=== PATIENT | male | born 1955 | race African-American/Black ===

== ENCOUNTER 2019-03-20 15:26 | Observation (INO) ==
[2019-03-20] MEDS ORDERED: ONDANSETRON 4 MG/2 ML VIAL ONE (16:10)
[2019-03-20] MEDS ORDERED: ONDANSETRON 4 MG/2 ML VIAL IV STA (16:37)
[2019-03-20] MEDS ORDERED: SODIUM CHLORIDE 0.9% 1,000 ML IV STA (16:37)
[2019-03-20] MEDS ORDERED: ASPIRIN 325 MG TABLET PO STA (16:37)
[2019-03-20 17:04] LABS: Basophils # 0.1 10*3/uL (0.0-0.2); Basophils % 0.5 % (0.0-0.8); Eosinophils % 0.1 % (0.00-10.9); Hematocrit 47.8 VOL% (42.0-52.0); Hemoglobin 15.5 GM/DL (14.0-18.0); Immature Granulocytes % 0.6 %; Immature Granulocytes Absolute 0.08 #; Lymphocytes # 1.6 10*3/uL (1.4-4.0); Lymphocytes % 12.3 % (21.2-54.2); Mean Corpuscular HGB Conc 32.4 GM/DL (32-36); Mean Corpuscular Volume 89.8 FL (87-102); Mean Platelet Volume 12.1 FL (9.6-12.0); Monocytes % 2.7 % (1.7-12.7); Neutrophils % 83.8 % (38.7-73.9); Platelet Count 274 T/CUMM (130-400); Red Blood Count 5.32 MC/CUMM (3.8-5.5); Red Cell Distribution Width 12.6 % (9.3-17.3); White Blood Count 12.9 T/CUMM (4-12)
[2019-03-20 17:13] LABS: INR 1.1; PT Patient Result 11.7 SECS (9.6-12.2)
[2019-03-20 17:51] LABS: Alanine Aminotransferase 64 U/L (16-61); Albumin 5.8 G/DL (3.4-5.0); Alkaline Phosphatase 105 U/L (45-117); Aspartate Amino Transferase 44 U/L (0-37); Blood Urea Nitrogen 27 MG/DL (7-18); CKMB % 1.9 %; Calcium 12.3 MG/DL (8.5-10.1); Estimated Glom Filtration Rate 27 ML/MIN; Glucose 111 MG/DL (74-106); Osmolality,Calculated 286.3 MOS/KG (273-304); Total Protein 10.5 G/DL (6.4-8.3); Troponin I < 0.015 NG/ML (0.00-0.045)
[2019-03-20 18:42] LABS: Apearance,Urine Cloudy (Clear); Glucose,Urine (UA) Negative (Negative); Ketones,Urine 25 mg/dL (Negative); Nitrite,Urine Negative (Negative); Protein,Urine 30 MG/DL; Urine Color Amber (Yellow)
[2019-03-20 18:43] LABS: Bilirubin,Urine Negative (Negative); Blood, Urine Negative (Negative); RBC,Urine Occasional /HPF (0-4); Renal Epithelial Cells,Urine None Seen /HPF (<1); Squamous Epithelial Cell,Urine 2+ /HPF (0-10); Transitional Epi Cells,Urine None Seen /HPF (<1); Urine Urobilinogen 0.2 EU/DL (0.2-1.0); WBC,Urine Occasional /HPF (0-6)
[2019-03-20 18:44] LABS: Mucus,Urine 2+ /LPF (Occasional)
[2019-03-20] MEDS ORDERED: ONDANSETRON 4 MG/2 ML VIAL IV PRN (19:00)
[2019-03-20] MEDS ORDERED: ACETAMINOPHEN 325 MG TABLET PO PRN (19:00)
[2019-03-20] MEDS ORDERED: hydrALAZINE 20 MG/1 ML VIAL IV PRN (19:04)
[2019-03-20 19:36] LABS: Barbiturates Screen,Urine Negative (Negative); Benzodiazepines Screen,Urine Negative (Negative); Cannabinoid Screen,Urine Negative (Negative); Opiate Screen,Urine Negative (Negative); Phencyclidine Screen,Urine Negative (Negative)
[2019-03-20] MEDS ORDERED: INFLUENZA VIRUS VACCINE 0.5 ML SYRINGE IM ONE (20:21)
[2019-03-20] MEDS ORDERED: ENOXAPARIN 30 MG/0.3 ML SYRINGE SUBCUT SCH (21:00)
[2019-03-20] MEDS: DEXTROSE 5% NACL 0.45% 1,000 ML IV SCH (21:01)
[2019-03-21 05:45] LABS: Calcium 8.7 MG/DL (8.5-10.1); Risk Ratio 2.42; VLDL CHOLESTEROL 10.2 MG/DL
[2019-03-21] MEDS: DEXTROSE 5% NACL 0.45% 1,000 ML IV SCH ×2 (06:40→11:49)
[2019-03-21 06:52] LABS: Basophils % 0.3 % (0.0-0.8); Eosinophils # 0.1 10*3/uL (0.0-0.87); Eosinophils % 1.6 % (0.00-10.9); Hematocrit 35.5 VOL% (42.0-52.0); Immature Granulocytes % 0.3 %; Immature Granulocytes Absolute 0.02 #; Lymphocytes # 2.1 10*3/uL (1.4-4.0); Lymphocytes % 28.1 % (21.2-54.2); Mean Corpuscular HGB Conc 32.4 GM/DL (32-36); Mean Corpuscular Volume 89.4 FL (87-102); Mean Platelet Volume 11.7 FL (9.6-12.0); Monocytes % 8.1 % (1.7-12.7); Neutrophils % 61.6 % (38.7-73.9); Red Cell Distribution Width 12.7 % (9.3-17.3)
[2019-03-21 06:53] LABS: Hemoglobin 11.5 GM/DL (14.0-18.0); Red Blood Count 3.97 MC/CUMM (3.8-5.5); White Blood Count 7.3 T/CUMM (4-12)
[2019-03-21 06:54] LABS: Platelet Count 180 T/CUMM (130-400)
[2019-03-21] MEDS ORDERED: LEVOTHYROXINE 25 MCG TABLET PO SCH (07:00)
[2019-03-21 08:05] VITALS: BP 124/81
[2019-03-21] MEDS ORDERED: SODIUM CHLORIDE 0.9% 2,000 ML IV ONE (08:41)
[2019-03-21] MEDS ORDERED: ASPIRIN EC 81 MG TABLET PO SCH (09:00)
[2019-03-21] MEDS ORDERED: PANTOPRAZOLE 40 MG TABLET PO SCH (09:00)
[2019-03-21] MEDS ORDERED: ENOXAPARIN 40 MG/0.4 ML SYRINGE SUBCUT SCH (21:00)
== END 2019-03-21 12:09 | disposition home or self-care (01) ==
LOC: N.EDINP 15:26 → N.ED 15:26 → N.2E 19:33
PROVIDERS: ADMIT Emergency Medicine; ATTEND Emergency Medicine

== ENCOUNTER 2020-10-16 05:33 | Observation (INO) ==
[2020-10-16 06:15] LABS: Basophils # 0.1 10*3/uL (0.0-0.2); Basophils % 0.5 % (0.0-0.8); Eosinophils # 0.2 10*3/uL (0.0-0.87); Eosinophils % 1.6 % (0.00-10.9); Hematocrit 38.3 VOL% (42.0-52.0); Hemoglobin 12.3 GM/DL (14.0-18.0); Immature Granulocytes % 0.4 %; Immature Granulocytes Absolute 0.04 #; Lymphocytes # 1.9 10*3/uL (1.4-4.0); Lymphocytes % 17.6 % (21.2-54.2); Mean Corpuscular HGB Conc 32.1 GM/DL (32-36); Mean Corpuscular Volume 87.2 FL (87-102); Mean Platelet Volume 10.8 FL (9.6-12.0); Monocytes % 5.5 % (1.7-12.7); Neutrophils % 74.4 % (38.7-73.9); Platelet Count 210 T/CUMM (130-400); Red Blood Count 4.39 MC/CUMM (3.8-5.5); Red Cell Distribution Width 13.2 % (9.3-17.3); White Blood Count 10.6 T/CUMM (4-12)
[2020-10-16] MEDS ORDERED: PANTOPRAZOLE 40 MG VIAL IV STA (06:15)
[2020-10-16] MEDS ORDERED: HYDROmorphone 2 MG/1 ML VIAL IV STA ×2 (06:15→13:34)
[2020-10-16] MEDS ORDERED: ONDANSETRON 4 MG/2 ML VIAL IV STA ×2 (06:15→14:26)
[2020-10-16] MEDS ORDERED: SODIUM CHLORIDE 0.9% 1,000 ML IV STA (06:15)
[2020-10-16 06:36] LABS: Bilirubin,Total 0.6 MG/DL (0.2-1.0); Calcium 8.9 MG/DL (8.5-10.1); Osmolality,Calculated 283.4 MOS/KG (273-304); Potassium 3.6 MMOL/L (3.5-5.1); Total Protein 7.5 G/DL (6.4-8.2)
[2020-10-16 08:04] LABS: Mucus,Urine Occasional /LPF (Occasional); RBC,Urine <1 /HPF (0-4); WBC,Urine 4 /HPF (0-6)
[2020-10-16 08:10] LABS: Bilirubin,Urine Negative (Negative); Blood, Urine Negative (Negative); Glucose,Urine (UA) Negative (Negative); Ketones,Urine Negative (Negative); Nitrite,Urine Negative (Negative); Protein,Urine Negative; Urine Appearance CLEAR (Clear); Urine Color Yellow (Yellow); Urine Urobilinogen < 2.0 EU/DL (0.2-1.0)
[2020-10-16 09:01] LABS: Barbiturates Screen,Urine Negative (Negative); Benzodiazepines Screen,Urine Negative (Negative); Cannabinoid Screen,Urine Negative (Negative); Opiate Screen,Urine Positive (Negative); Phencyclidine Screen,Urine Negative (Negative)
[2020-10-16] MEDS ORDERED: ONDANSETRON 4 MG/2 ML VIAL ONE (13:36)
[2020-10-16] MEDS ORDERED: KETOROLAC 15 MG/1 ML VIAL IV PRN (14:29)
[2020-10-16] MEDS ORDERED: ONDANSETRON 4 MG/2 ML VIAL IV PRN (14:29)
[2020-10-16] MEDS ORDERED: ACETAMINOPHEN 325 MG TABLET PO PRN (14:29)
[2020-10-16] MEDS ORDERED: HYDROmorphone 2 MG/1 ML VIAL IV PRN ×2 (14:29)
[2020-10-16] MEDS ORDERED: ALBUTEROL/IPRATROPIUM 3 ML NEB RESP TX PRN (14:29)
[2020-10-16] MEDS ORDERED: BISACODYL 5 MG TABLET PO PRN (14:29)
[2020-10-16] MEDS: LACTATED RINGERS 1,000 ML IV SCH (15:30)
[2020-10-16] MEDS: PIPERACILLIN/TAZOBACTAM 3,375 MG in SODIUM CHLORIDE 0.9% 100 ML IV SCH ×2 (15:30→21:58)
[2020-10-16] MEDS: GABAPENTIN 300 MG CAPSULE PO SCH (21:05)
[2020-10-17] MEDS: LACTATED RINGERS 1,000 ML IV SCH ×3 (05:06→22:30)
[2020-10-17 05:55] LABS: Basophils # 0.1 10*3/uL (0.0-0.2); Basophils % 0.5 % (0.0-0.8); Eosinophils # 0.1 10*3/uL (0.0-0.87); Eosinophils % 1.1 % (0.00-10.9); Hematocrit 37.9 VOL% (42.0-52.0); Hemoglobin 12.3 GM/DL (14.0-18.0); Immature Granulocytes % 0.4 %; Immature Granulocytes Absolute 0.04 #; Lymphocytes # 2.5 10*3/uL (1.4-4.0); Lymphocytes % 24.2 % (21.2-54.2); Mean Corpuscular HGB Conc 32.5 GM/DL (32-36); Mean Corpuscular Volume 87.5 FL (87-102); Mean Platelet Volume 11.1 FL (9.6-12.0); Monocytes % 9.3 % (1.7-12.7); Neutrophils % 64.5 % (38.7-73.9); Platelet Count 214 T/CUMM (130-400); Red Blood Count 4.33 MC/CUMM (3.8-5.5); Red Cell Distribution Width 13.2 % (9.3-17.3); White Blood Count 10.5 T/CUMM (4-12)
[2020-10-17 06:12] LABS: Calcium 8.8 MG/DL (8.5-10.1); Osmolality,Calculated 281.1 MOS/KG (273-304); Potassium 3.5 MMOL/L (3.5-5.1)
[2020-10-17] MEDS: PIPERACILLIN/TAZOBACTAM 3,375 MG in SODIUM CHLORIDE 0.9% 100 ML IV SCH ×2 (06:19→16:25)
[2020-10-17] MEDS: LEVOTHYROXINE 100 MCG TABLET PO SCH (06:21)
[2020-10-17] MEDS: ASPIRIN EC 81 MG TABLET PO SCH (10:59)
[2020-10-17] MEDS: LOSARTAN 50 MG TABLET PO SCH (11:00)
[2020-10-17] MEDS: hydroCHLOROthiazide 12.5 MG CAPSULE PO SCH (11:00)
[2020-10-17] MEDS: PANTOPRAZOLE 40 MG TABLET PO SCH (11:00)
[2020-10-17] MEDS: TAMSULOSIN 0.4 MG CAPSULE PO SCH (11:00)
[2020-10-17] MEDS: POTASSIUM GLUCONATE 500 MG TABLET PO SCH (11:00)
[2020-10-17] MEDS: GABAPENTIN 300 MG CAPSULE PO SCH ×2 (11:00→21:18)
[2020-10-17] MEDS: DULoxetine 20 MG CAPSULE PO SCH (11:00)
[2020-10-17] MEDS ORDERED: fentaNYL 100 MCG/2 ML VIAL ONE (12:15)
[2020-10-17] MEDS ORDERED: MIDAZOLAM 2 MG/2 ML VIAL ONE (12:15)
[2020-10-17] MEDS ORDERED: propofoL 200 MG/20 ML VIAL IV ONE (12:52)
[2020-10-17] MEDS ORDERED: SEVOFLURANE 1 UNIT/15 MINUTE INH ONE (12:52)
[2020-10-17] MEDS ORDERED: GLYCOPYRROLATE 0.4 MG/2 ML VIAL ONE ×2 (12:52→13:26)
[2020-10-17] MEDS ORDERED: PHENYLEPHRINE 1 MG/10 ML SYRINGE IV ONE (12:52)
[2020-10-17] MEDS ORDERED: ACETAMINOPHEN INJ 1,000 MG/100 ML VIAL IV ONE ×2 (12:52)
[2020-10-17] MEDS ORDERED: ROCURONIUM 50 MG/5 ML VIAL IV ONE (12:52)
[2020-10-17] MEDS ORDERED: LIDOCAINE 2% 5 ML VIAL ONE (12:52)
[2020-10-17] MEDS ORDERED: ONDANSETRON 4 MG/2 ML VIAL ONE (12:52)
[2020-10-17] MEDS ORDERED: NEOSTIGMINE 10 MG/10 ML VIAL ONE (13:26)
[2020-10-17] MEDS: HYDROmorphone 2 MG/1 ML VIAL IV PRN (18:25)
[2020-10-18] MEDS: PIPERACILLIN/TAZOBACTAM 3,375 MG in SODIUM CHLORIDE 0.9% 100 ML IV SCH ×2 (00:34→10:22)
[2020-10-18] MEDS: HYDROmorphone 2 MG/1 ML VIAL IV PRN ×2 (01:41→04:44)
[2020-10-18] MEDS: LACTATED RINGERS 1,000 ML IV SCH (04:44)
[2020-10-18] MEDS: LEVOTHYROXINE 100 MCG TABLET PO SCH (06:28)
[2020-10-18] MEDS ORDERED: DEXAMETHASONE INJ 20 MG in SODIUM CHLORIDE 0.9% 50 ML IV ONE (08:30)
[2020-10-18] MEDS: DULoxetine 20 MG CAPSULE PO SCH (09:54)
[2020-10-18] MEDS: PANTOPRAZOLE 40 MG TABLET PO SCH (09:55)
[2020-10-18] MEDS: LOSARTAN 50 MG TABLET PO SCH (09:55)
[2020-10-18] MEDS: GABAPENTIN 300 MG CAPSULE PO SCH (09:55)
[2020-10-18] MEDS: TAMSULOSIN 0.4 MG CAPSULE PO SCH (09:55)
[2020-10-18] MEDS: ASPIRIN EC 81 MG TABLET PO SCH (09:55)
[2020-10-18] MEDS: hydroCHLOROthiazide 12.5 MG CAPSULE PO SCH (09:55)
[2020-10-18] MEDS: POTASSIUM GLUCONATE 500 MG TABLET PO SCH (09:56)
[2020-10-18 12:34] VITALS: BP 160/73
== END 2020-10-18 16:00 | disposition home or self-care (01) ==
LOC: N.ED 05:33 → N.EDINP 14:29 → INTOOBSV 14:29 → N.5E 15:20
PROVIDERS: ADMIT Surgery; ATTEND Surgery
PROC: LAPCHOL (2020-10-17 12:28)